=== PATIENT | female | born 1975 | race Caucasian/White ===

== ENCOUNTER 2020-09-19 04:17 | Emergency (ER) | payer MEDICAID ==
[~2020-09-19] VITALS: Ht 165.1 cm; Wt 97.2 kg
[~2020-09-19 04:17] MED LIST: CIPR500T87 PO; HYDR-3653 PO; ONDA4TAB10 PO
--- NOTE | 2020-09-19 04:26 | NUR ---
RAMU AT BEDSIDE TO ASSESS PT
--- NOTE | 2020-09-19 04:29 | NUR ---
THIS IS A 45Y F BIB EMS FROM HOME FOR LLQ PAIN [id number], WORSENING TODAY. PT HAS HX OF HTN AND IS UNMEDICATED FOR THIS. PT REPORTS NO NEW EVENTS/ MEDICATIONS/ TRAUMA/ FOODS. DENIES ANY CHANGES IN BOWEL HABITS. PT CONNECTED TO MONITORING.
[2020-09-19] MEDS ORDERED: FAMOTIDINE 20 MG/2 ML IV ONE (04:30)
[2020-09-19] MEDS ORDERED: ONDANSETRON 2MG/ML, 2ML IVPush ONE (04:30)
[2020-09-19] MEDS ORDERED: SODIUM CHLORIDE 0.9% 1,000ML IVBOLUS ONE (04:30)
[2020-09-19] MEDS ORDERED: SODIUM CHLORIDE FLUSH 10ML SYR IVF ONE (04:30)
[2020-09-19] MEDS ORDERED: ONDANSETRON 2MG/ML, 2ML ONE (05:02)
[2020-09-19] MEDS ORDERED: FAMOTIDINE 20 MG/2 ML ONE (05:02)
[2020-09-19 05:15] LABS: BASOPHILS % (AUTO) 1 % (0-1); EOSINOPHILS % (AUTO) 2 % (1-7); LYMPHOCYTES % (AUTO) 21 % (22-44); MEAN CORPUSCULAR HEMOGLOBIN 26.6 pg (27.0-34.8); MEAN CORPUSCULAR HGB CONC 33.1 g/dL (32.4-35.8); MEAN PLATELET VOLUME 7.3 fL (7.4-10.4); MONOCYTES % (AUTO) 13 % (2-9); NEUTROPHILS % (AUTO) 63 % (42-75); PLATELET COUNT 255 x10^3/uL (130-400); RED BLOOD COUNT 5.04 x10^6/uL (3.82-5.3); RED CELL DISTRIBUTION WIDTH 14.9 % (9.6-15.2)
[2020-09-19 05:22] LABS: ALBUMIN 3.4 g/dL (3.4-5.0); CALCIUM 8.5 mg/dL (8.5-10.1); CHLORIDE 109 mmol/L (98-107)
--- NOTE | 2020-09-19 05:25 | NUR ---
PIV STARTED PT MEDICATED PER MAR
[2020-09-19 05:28] LABS: ALANINE AMINOTRANSFERASE 33 U/L (12-78); ALKALINE PHOSPHATASE 99 U/L (45-117); BILIRUBIN,TOTAL 0.7 mg/dL (0.2-1.0); TOTAL PROTEIN 7.2 g/dL (6.4-8.2); TROPONIN I < 0.015 ng/mL (0.000-0.045)
[2020-09-19 05:29] LABS: MD NO
[2020-09-19 05:31] LABS: ANION GAP 5 mmol/L (5-15)
--- NOTE | 2020-09-19 06:37 | NUR ---
PT TO CT AT THIS TIME
--- NOTE | 2020-09-19 06:51 | NUR ---
PT RETURN TO ROOM FROM CT. NO ACUTE DISTRESS NOTED. IV INFUSING WITHOUT REDNESS/SWELLING. AWAITING TEST RESULTS.
--- NOTE | 2020-09-19 06:57 | NUR ---
BEDSIDE REPORT GIVEN TO NAIN [place] ARTILLERY CREWMEMBER OF CARE AT THIS TIME
--- NOTE | 2020-09-19 07:06 | NUR ---
PT AMB TO BR AND BACK TO ROOM, GAIT SLOW AND STEADY. PT ABLE TO PROVIDE URINE SPECIMAN. PT PLACED ON RESIDENT CARE AIDE, SR PER MONITOR. PT AWARE OF WAITING FOR TEST RESULTS.
--- NOTE | 2020-09-19 08:14 | NUR ---
PT SLEEPING, NO ACUTE DISTRESS NOTED. SR PER MONITOR. IV INFUSING WITHOUT REDNESS/SWELLING. PTS VANESSA AT BEDSIDE. AWAITING FURTHER DISPOSITON.
[2020-09-19 08:20] LABS: MICROSCOPIC NOT IND
--- NOTE | 2020-09-19 09:00 | NUR ---
REPORT TO NEGAR Wray RN
[2020-09-19 09:03] VITALS: BP 137/95
== END 2020-09-19 09:46 | disposition home or self-care (01) ==
LOC: ED 05:37
DX: K80.20 Calculus of gallbladder without cholecystitis without obstruction (principal); R94.31 Abnormal electrocardiogram [ECG] [EKG]; I10 Essential (primary) hypertension; J45.909 Unspecified asthma, uncomplicated
CPT/HCPCS: 36415; 71045; 74177; 76700; 80053; 81003; 83690; 84484; 85025; 93005; 96374; 96375; 99285; J2405; J7030